=== PATIENT | female | born 1955 | race Caucasian/White ===

== ENCOUNTER 2016-10-20 20:29 | Emergency (ER) | payer OTHER ==
[~2016-10-20] VITALS: Ht 157.5 cm; Wt 64.0 kg
[~2016-10-20 20:29] MED LIST: Z.0.NO CURRENT MEDS
[2016-10-20 20:44] VITALS: BP 119/65; PULSE 83; RESP 16; TEMP 97.2; O2SAT 98
[2016-10-20 21:33] LABS: BACTERIA, URINE RARE /hpf; BLOOD, URINE NEG (NEG); COMMENT (UR) CULTURE INDICATED; CULTURE IF INDICATED CULTURE INDICATED; GLUCOSE,URINE NEG (NEG); KETONE, URINE NEG (NEG); SQUAMOUS EPITHELIAL CELL URINE 2 /hpf (0-5); URINE COLOR LIGHT-YELLOW (YELLW/STRAW)
[2016-10-20 21:34] LABS: NITRITE,URINE POS (NEG)
[2016-10-20 21:38] LABS: AUTOMATED NEUTROPHIL # 1.8 TH/MM3 (1.8-7.7); BASOPHIL # 0.1 TH/MM3 (0-0.2); BASOPHIL % 0.7 % (0.0-2.0); EOSINOPHIL # 0.3 TH/MM3 (0-0.4); EOSINOPHIL % 2.8 % (0.0-4.0); HEMATOCRIT 39.6 % (35.0-46.0); LYMPH % 70.3 % (9.0-44.0); LYMPHOCYTE # 6.9 TH/MM3 (1.0-4.8); MEAN CELL VOLUME 95.9 FL (80.0-100.0); MEAN CORPUSCULAR HEMOGLOBIN 34.2 PG (27.0-34.0); MEAN CORPUSCULAR HGB CONC 35.6 % (32.0-36.0); MONO % 7.6 % (0.0-8.0); NEUT % 18.6 % (16.0-70.0); PLATELET COUNT 268 TH/MM3 (150-450); RED BLOOD COUNT 4.13 MIL/MM3 (4.00-5.30); RED CELL DISTRIBUTION WIDTH 12.4 % (11.6-17.2); WHITE BLOOD COUNT 9.8 TH/MM3 (4.0-11.0)
[2016-10-20 21:39] LABS: HEMO FLAGS AUTO DIFF
[2016-10-20 22:06] LABS: ALKALINE PHOSPHATASE 110 U/L (45-117); ALT (GPT) 97 U/L (10-53); ANION GAP 13 MEQ/L (5-15); AST (GOT) 143 U/L (15-37); BICARBONATE 23.8 MEQ/L (21.0-32.0); BLOOD UREA NITROGEN 7 MG/DL (7-18); CHLORIDE 104 MEQ/L (98-107); GLOMERULAR FILTRATION RATE 93 ML/MIN (>89); POTASSIUM 3.9 MEQ/L (3.5-5.1); SODIUM (NA) 141 MEQ/L (136-145); TOTAL BILIRUBIN ADULT 0.3 MG/DL (0.2-1.0)
[2016-10-20 22:18] LABS: EOSINOPHILS 6 % (0-4); MYELOCYTES 1 % (0-0); NEUTROPHIL # MANUAL DIFF 1.8 TH/MM3 (1.8-7.7); POLYS (SEG NEUTROPHILS) 17 % (16-70); WBC DIFF SAMPLE 100
[2016-10-20 22:19] LABS: PLATELET ESTIMATE SMEAR NORMAL (NORMAL); PLATELET MORPHOLOGY NORMAL (NORMAL); SCAN/DIFF FINAL DIFF MANUAL
[2016-10-20 23:36] LABS: AMPHETAMINE, URINE NEG (NEG); BARBITURATES, URINE NEG (NEG); COCAINE, URINE NEG (NEG)
[2016-10-20 23:40] VITALS: BP 115/65; PULSE 92; RESP 20; TEMP 98.2; O2SAT 98
--- NOTE | 2016-10-21 01:37 | PD ---
HPI Chief Complaint: Psychiatric Symptoms Time Seen by Provider: 01:34 Travel History International Travel<30 days: No Contact w/Intl Traveler<30days: No Traveled to known affect area: No History of Present Illness HPI Patient comes in under [place] act by police for alcohol intoxication making suicidal statements. Patient states she had thought about possibly running into traffic to kill herself. Denies any previous suicide attempts. Denies any homicidal ideations or medical concerns. Denies chest pain, shortness of breath, nausea, vomiting, bowel pain, or fevers. PFSH Past Medical History Arthritis: Yes Asthma: No Autoimmune Disease: No Blood Disorders: No Anxiety: Yes Depression: Yes Heart Rhythm Problems: No Cancer: Yes (DX WITH BREAST CANCER) Cardiovascular Problems: Yes High Cholesterol: No Chemotherapy: No Chest Pain: No Congestive Heart Failure: No COPD: No Cerebrovascular Accident: No Diabetes: No Diminished Hearing: No Endocrine: No GERD: Yes Glaucoma: No Genitourinary: No Headaches: Yes Hiatal Hernia: No Hypertension: No Kidney Stones: No Musculoskeletal: Yes Neurologic: No Psychiatric: Yes Respiratory: No Integumentary: Yes (MULTIPLE WELL HEALED SCARS FROM DOG BITES) Myocardial Infarction: No Radiation Therapy: No Renal Failure: No Seizures: No Sickle Cell Disease: No Sleep Apnea: No Thyroid Disease: Yes Ulcer: No Tetanus Vaccination: < 5 Years : 2 Para: 2 Tubal Ligation: Yes () Past Surgical History Abdominal Surgery: No AICD: No Cardiac Surgery: No Section: Yes (X 2) Ear Surgery: No Endocrine Surgery: No Eye Surgery: No Genitourinary Surgery: No Gynecologic Surgery: No Oral Surgery: Yes Pacemaker: No Thoracic Surgery: No Social History Alcohol Use: Yes (BEER ON THE WEEKENDS) Tobacco Use: Yes (1 PPD) Substance Use: Yes Allergies-Medications (Allergen,Severity, Reaction): Coded Allergies: Darvocet-N 100 (Verified Allergy, Severe, 10/20/16) Seroquel (Verified Allergy, Mild, 10/20/16) Sinequan (Verified Allergy, Mild, 10/20/16) Reported Meds & Prescriptions Reported Meds & Active Scripts Active Bactrim DS (Sulfamethoxazole-Trimethoprim) 800-160 Mg Tab 1 Tab PO BID Review of Systems Except as stated in HPI: all other systems reviewed are Neg Physical Exam Narrative GENERAL: Well-developed, overly nourished, in no acute distress, and non-ill appearing. SKIN: Warm and dry. HEAD: Atraumatic. Normocephalic. EYES: Pupils equal and round. EOMI. No scleral icterus. No injection or drainage. ENT: No nasal bleeding or discharge. Mucous membranes pink and moist. NECK: Trachea midline. Supple. No nuclear rigidity. CARDIOVASCULAR: Regular rate and rhythm. No murmur appreciated. RESPIRATORY: No accessory muscle use. No respiratory distress. Clear to auscultation. Breath sounds equal bilaterally. MUSCULOSKELETAL: No obvious deformities. No clubbing. No cyanosis. No edema. Full range of motion. NEUROLOGICAL: Awake and alert. No obvious cranial nerve deficits. Motor grossly within normal limits. Normal speech. PSYCHIATRIC: Appropriate mood and affect; insight and judgment normal. Data Data Last Documented VS Vital Signs Date Time Temp Pulse Resp B/P Pulse Ox O2 Delivery O2 Flow Rate FiO2 10/22/16 10:00 99 16 172/70 97 Room Air 10/22/16 09:46 99.5 10/21/16 19:09 97 Orders Complete Blood Count With Diff (10/20/16 21:15) Comprehensive Metabolic Panel (10/20/16 21:15) Psych Screen (10/20/16 21:15) Urinalysis - C+S If Indicated (10/20/16 21:19) Urine Culture (10/20/16 21:20) Drug Screen, Random Urine (10/20/16 22:48) Alcohol (Ethanol) (10/20/16 22:48) Diet Regular Basic (10/21/16 Breakfast) Sulfamet-Trimeth Ds 800-160 Mg (Bactrim (10/21/16 01:45) Cetirizine (Zyrtec) (10/21/16 05:00) Alcohol Withdrawal Asmt-Ciwa ONCE (10/21/16 05:13) Flumazenil Inj (Romazicon Inj) (10/21/16 05:15) Lorazepam (Ativan) (10/21/16 05:15) Lorazepam Inj (Ativan Inj) (10/21/16 05:15) Lorazepam (Ativan) (10/21/16 05:15) Lorazepam Inj (Ativan Inj) (10/21/16 05:15) Lorazepam Inj (Ativan Inj) (10/21/16 05:15) Lorazepam Inj (Ativan Inj) (10/21/16 05:15) Diet Regular Basic (10/21/16 Lunch) Diet Regular Basic (10/21/16 Dinner) Ibuprofen (Motrin) (10/21/16 16:45) Diet Regular Basic (10/22/16 Breakfast) Labs Laboratory Tests Test 10/20/16 21:20 White Blood Count 9.8 TH/MM3 Red Blood Count 4.13 MIL/MM3 Hemoglobin 14.1 GM/DL Hematocrit 39.6 % Mean Corpuscular Volume 95.9 FL Mean Corpuscular Hemoglobin 34.2 PG Mean Corpuscular Hemoglobin 35.6 % Concent Red Cell Distribution Width 12.4 % Platelet Count 268 TH/MM3 Mean Platelet Volume 7.3 FL Neutrophils (%) (Auto) 18.6 % Lymphocytes (%) (Auto) 70.3 % Monocytes (%) (Auto) 7.6 % Eosinophils (%) (Auto) 2.8 % Basophils (%) (Auto) 0.7 % Neutrophils # (Auto) 1.8 TH/MM3 Lymphocytes # (Auto) 6.9 TH/MM3 Monocytes # (Auto) 0.7 TH/MM3 Eosinophils # (Auto) 0.3 TH/MM3 Basophils # (Auto) 0.1 TH/MM3 CBC Comment AUTO DIFF Differential Total Cells 100 Counted Neutrophils % (Manual) 17 % Lymphocytes % 74 % Monocytes % 2 % Eosinophils % 6 % Neutrophils # (Manual) 1.8 TH/MM3 Myelocytes 1 % Differential Comment FINAL DIFF MANUAL Atypical Lymphocytes % Platelet Estimate NORMAL Platelet Morphology Comment NORMAL Red Cell Morphology Comment NORMAL Sodium Level 141 MEQ/L Potassium Level 3.9 MEQ/L Chloride Level 104 MEQ/L Carbon Dioxide Level 23.8 MEQ/L Anion Gap 13 MEQ/L Blood Urea Nitrogen 7 MG/DL Creatinine 0.65 MG/DL Estimat Glomerular Filtration 93 ML/MIN Rate Random Glucose 126 MG/DL Calcium Level 9.2 MG/DL Total Bilirubin 0.3 MG/DL Aspartate Amino Transf 143 U/L (AST/SGOT) Alanine Aminotransferase 97 U/L (ALT/SGPT) Alkaline Phosphatase 110 U/L Total Protein 8.0 GM/DL Albumin 3.4 GM/DL Urine Opiates Screen NEG Urine Barbiturates Screen NEG Urine Amphetamines Screen NEG Urine Benzodiazepines Screen POS Urine Cocaine Screen NEG Urine Cannabinoids Screen NEG Ethyl Alcohol Level 239 MG/DL Urine Color LIGHT-YELLOW Urine Turbidity HAZY Urine pH 6.0 Urine Specific [place] 1.004 Urine Protein NEG mg/dL Urine Glucose (UA) NEG mg/dL Urine Ketones NEG mg/dL Urine Occult Blood NEG Urine Nitrite POS Urine Bilirubin NEG Urine Urobilinogen LESS THAN 2.0 MG/DL Urine Leukocyte Esterase LARGE Urine WBC 55 /hpf Urine Squamous Epithelial 2 /hpf Cells Urine Bacteria RARE /hpf Microscopic Urinalysis Comment CULTURE INDICATED MDM Medical Decision Making Medical Screen Exam Complete: Yes Emergency Medical Condition: Yes Differential Diagnosis Homicidal, suicidal, alcohol intoxication, depression, other Narrative Course Patient was seen and examined. Labs were obtained and reviewed. Patient medically cleared for further treatment and evaluation by psych. Final disposition per psych. Diagnosis Primary Impression: Suicidal ideation Additional Impressions: Alcohol intoxication Qualified Code: F10.120 - Alcohol intoxication, uncomplicated UTI (urinary tract infection) Qualified Code: N39.0 - Urinary tract infection without hematuria, site unspecified Patient Instructions: General Instructions, Urinary Tract Infection in Women ( ED) Additional Instructions: Follow-up with primary care doctor next week for reevaluation of urinary tract infection. Take all medication as prescribed. Scripts Sulfamethoxazole-Trimethoprim (Bactrim DS)800-160 Mg Tab1 Tab PO BID #14 TAB Ref 0 Prov:Marta Cain MD 10/21/16 Condition: Stable Tommy Alarcon Oct 21, 2016 01:37
[2016-10-21] MEDS ORDERED: BACT800T5 PO (01:38)
[2016-10-21] MEDS ORDERED: SULFAMETHOXAZOLE-TRIMETHOPRIM DS 800-160 MG TAB PO ONE (01:45)
[2016-10-21] MEDS ORDERED: CETIRIZINE HCL 10 MG TAB PO ONE (05:00)
[2016-10-21 05:14] VITALS: BP 164/72; PULSE 100; RESP 18
[2016-10-21] MEDS ORDERED: LORazepam 2 MG/ML VIAL IV PUSH PRN ×4 (05:15)
[2016-10-21] MEDS ORDERED: FLUMAZENIL 0.5 MG/5 ML VIAL IV PUSH PRN (05:15)
[2016-10-21] MEDS: LORazepam 1 MG TAB PO PRN ×3 (05:18→15:19)
[2016-10-21 10:42] VITALS: BP 166/86; PULSE 104; RESP 18; TEMP 99.2; O2SAT 97
[2016-10-21 15:19] VITALS: BP 171/83; PULSE 95; RESP 16; TEMP 99.3; O2SAT 96
--- NOTE | 2016-10-21 15:44 | PD ---
History of Present Illness Chief Complaint: Psychiatric Symptoms Time Seen by Provider: 15:30 Travel History International Travel<30 Days: No Contact w/Intl Traveler<30days: No Known affected area: No Legal Status Legal Status: [place] Act [place] Act Signed By: Hilary Martinez History of Present Illness: History of Present Illness HPI 61 year old female with no previous psychiatric history and history of alcohol abuse who comes in under [place] act initiated by police. As per the BA report the patient was found intoxicated and advised them she wanted to walk into traffic to kill herself. Patient presented with BAL of 239. Positive toxicology for benzos. EMR is reviewed and she has not had previous contact with [facility] psychiatry. Patient has been monitored in [facility] and has presented no behavioral concerns. Patient is seen this morning in [facility] pod. She is clinically sober. She has tremors of hands and is diaphoretic. She is on CIWA protocol. Her speech is clear and logical, goal directed. Her hygiene and grooming is poor. She tells me she has been living on the streets since April. She denies any hallucinations, delusions or paranoia. her mood is depressed. She is hopeless and helpless about her life and her inability to maintain sobriety. She states that she has had multiple losses including her who in December 2015. She lost her home in April,lost her vehicle as well. Yesterday she lost her suitcase with the last of her belongings. She is denying current suicidal ideation. In terms of her alcohol use she has been drinking every day since December and usually drinks as much as she can find and that she is unable to stop drinking. Prior to that she reports she was an occasional / social drinker only. PFSH Past Medical History Arthritis: Yes Asthma: No Autoimmune Disease: No Blood Disorders: No Anxiety: Yes Depression: Yes Heart Rhythm Problems: No Cancer: Yes (DX WITH BREAST CANCER) Cardiovascular Problems: Yes High Cholesterol: No Chemotherapy: No Chest Pain: No Congestive Heart Failure: No COPD: Yes (SMOKER) Cerebrovascular Accident: No Diabetes: No Diminished Hearing: No Endocrine: No Gastrointestinal Disorders: No GERD: Yes Glaucoma: No Genitourinary: No Headaches: Yes Hiatal Hernia: No Hypertension: No Kidney Stones: No Musculoskeletal: Yes Neurologic: No Psychiatric: Yes Reproductive: No Respiratory: No Integumentary: Yes (MULTIPLE WELL HEALED SCARS FROM DOG BITES) Myocardial Infarction: No Radiation Therapy: No Renal Failure: No Seizures: No Sickle Cell Disease: No Sleep Apnea: No Thyroid Disease: Yes Ulcer: No Tetanus Vaccination: < 5 Years : 2 Para: 2 Tubal Ligation: Yes () Past Surgical History Abdominal Surgery: No AICD: No Cardiac Surgery: No Section: Yes (X 2) Ear Surgery: No Endocrine Surgery: No Eye Surgery: No Genitourinary Surgery: No Gynecologic Surgery: No Neurologic Surgery: No Oral Surgery: Yes Pacemaker: No Thoracic Surgery: No Other Surgery: No Psychiatric History Psychiatric History Hx Psychiatric Treatment: PT DENIES History of Inpatient Treatment: No Guns or firearms in home: No Social History female.Homeless. receives social security Hx Alcohol Use: Yes (BEER ON THE WEEKENDS) Hx Tobacco Use: Yes (1 PPD) Hx Substance Use: Yes (ALCOHOL ABUSE) Substance Use Type: Alcohol Hx of Substance Use Treatment: No Family Psychiatric History Negative Allergies-Medications (Allergen,Severity, Reaction): Coded Allergies: Darvocet-N 100 (Verified Allergy, Severe, 10/20/16) Seroquel (Verified Allergy, Mild, 10/20/16) Sinequan (Verified Allergy, Mild, 10/20/16) Reported Meds & Prescriptions Reported Meds & Active Scripts Active Bactrim DS (Sulfamethoxazole-Trimethoprim) 800-160 Mg Tab 1 Tab PO BID Review of Systems Endocrine: DENIES: Abnorml menstrual pattern, Heat/cold intolerance, Polydipsia , Polyuria, Polyphagia Eyes: DENIES: Blurred vision, Diplopia, Eye inflammation, Eye pain, Vision loss , Photosensitivity, Double Vision Ears, nose, mouth, throat: DENIES: Tinnitus, Hearing loss, Vertigo, Nasal discharge, Oral lesions, Throat pain, Hoarseness, Ear Pain, Running Nose, Epistaxis, Sinus Pain, Toothache, Odynophagia Respiratory: DENIES: Apneas, Cough, Snoring, Wheezing, Hemoptysis, Sputum production, Shortness of breath Cardiovascular: DENIES: Chest pain, Palpitations, Syncope, Dyspnea on Exertion , PND, Lower Extremity Edema, Orthopnea, Claudication Gastrointestinal: COMPLAINS OF: Nausea Genitourinary: COMPLAINS OF: Urinary frequency Musculoskeletal: COMPLAINS OF: Back pain Integumentary: DENIES: Abnormal pigmentation, Pruritus, Rash, Nail changes, Breast masses, Breast skin changes, Nipple discharge Hematologic/lymphatic: DENIES: Bruising, Lymphadenopathy Immunologic/allergic: DENIES: Eczema, Urticaria Neurologic: DENIES: Abnormal gait, Headache, Localized weakness, Paresthesias, Seizures, Speech Problems, Tremor, Poor Balance Psychiatric: COMPLAINS OF: Depression Exam Alert: Yes [place]: Person (ox4) Mood: Depressed Affect: Other (teraful) Eye Contact: Normal Memory Intact: Immediate (not impaired), Comment (no gross abnormality) Delusions: No Suicidal: Ideation (deneis at present) Homicidal: Ideation (denies at present) Insight/Judgement Fair. Not impaired MDM Medical Decision Making Medical Record Reviewed: Yes Assessment/Plan 61 year old female with alcohol dependence as well as alcohol induced mood disorder who is under a BA for reporting she wanted to jump into upcoming traffic. At this time the patient requires continued observation . She has been placed on SMA list for continued treatment as well as detox services. She wants to be able to move into a sober living home. Orders Complete Blood Count With Diff (10/20/16 21:15) Comprehensive Metabolic Panel (10/20/16 21:15) Psych Screen (10/20/16 21:15) Urinalysis - C+S If Indicated (10/20/16 21:19) Urine Culture (10/20/16 21:20) Drug Screen, Random Urine (10/20/16 22:48) Alcohol (Ethanol) (10/20/16 22:48) Diet Regular Basic (10/21/16 Breakfast) Sulfamet-Trimeth Ds 800-160 Mg (Bactrim (10/21/16 01:45) Cetirizine (Zyrtec) (10/21/16 05:00) Alcohol Withdrawal Asmt-Ciwa ONCE (10/21/16 05:13) Flumazenil Inj (Romazicon Inj) (10/21/16 05:15) Lorazepam (Ativan) (10/21/16 05:15) Lorazepam Inj (Ativan Inj) (10/21/16 05:15) Lorazepam (Ativan) (10/21/16 05:15) Lorazepam Inj (Ativan Inj) (10/21/16 05:15) Lorazepam Inj (Ativan Inj) (10/21/16 05:15) Lorazepam Inj (Ativan Inj) (10/21/16 05:15) Diet Regular Basic (10/21/16 Lunch) Diet Regular Basic (10/21/16 Dinner) Results Vital Signs Date Time Temp Pulse Resp B/P Pulse Ox O2 Delivery O2 Flow Rate FiO2 10/21/16 15:19 99.3 95 16 171/83 96 10/21/16 10:42 99.2 104 18 166/86 97 Room Air 10/21/16 05:14 100 18 164/72 10/21/16 04:23 10/20/16 23:40 98.2 92 20 115/65 98 Room Air 10/20/16 20:44 97.2 83 16 119/65 98 Laboratory Tests Test 10/20/16 21:20 White Blood Count 9.8 Red Blood Count 4.13 Hemoglobin 14.1 Hematocrit 39.6 Mean Corpuscular Volume 95.9 Mean Corpuscular Hemoglobin 34.2 Mean Corpuscular Hemoglobin 35.6 Concent Red Cell Distribution Width 12.4 Platelet Count 268 Mean Platelet Volume 7.3 Neutrophils (%) (Auto) 18.6 Lymphocytes (%) (Auto) 70.3 Monocytes (%) (Auto) 7.6 Eosinophils (%) (Auto) 2.8 Basophils (%) (Auto) 0.7 Neutrophils # (Auto) 1.8 Lymphocytes # (Auto) 6.9 Monocytes # (Auto) 0.7 Eosinophils # (Auto) 0.3 Basophils # (Auto) 0.1 CBC Comment AUTO DIFF Differential Total Cells 100 Counted Neutrophils % (Manual) 17 Lymphocytes % 74 Monocytes % 2 Eosinophils % 6 Neutrophils # (Manual) 1.8 Myelocytes 1 Differential Comment FINAL DIFF MANUAL Atypical Lymphocytes Platelet Estimate NORMAL Platelet Morphology Comment NORMAL Red Cell Morphology Comment NORMAL Sodium Level 141 Potassium Level 3.9 Chloride Level 104 Carbon Dioxide Level 23.8 Anion Gap 13 Blood Urea Nitrogen 7 Creatinine 0.65 Estimat Glomerular Filtration 93 Rate Random Glucose 126 Calcium Level 9.2 Total Bilirubin 0.3 Aspartate Amino Transf 143 (AST/SGOT) Alanine Aminotransferase 97 (ALT/SGPT) Alkaline Phosphatase 110 Total Protein 8.0 Albumin 3.4 Urine Opiates Screen NEG Urine Barbiturates Screen NEG Urine Amphetamines Screen NEG Urine Benzodiazepines Screen POS Urine Cocaine Screen NEG Urine Cannabinoids Screen NEG Ethyl Alcohol Level 239 Urine Color LIGHT-YELLOW Urine Turbidity HAZY Urine pH 6.0 Urine Specific [place] 1.004 Urine Protein NEG Urine Glucose (UA) NEG Urine Ketones NEG Urine Occult Blood NEG Urine Nitrite POS Urine Bilirubin NEG Urine Urobilinogen LESS THAN 2.0 Urine Leukocyte Esterase LARGE Urine WBC 55 Urine Squamous Epithelial 2 Cells Urine Bacteria RARE Microscopic Urinalysis Comment CULTURE INDICATED Date/Time Procedure Status Source Growth 10/20/16 21:20 Urine Culture - Preliminary Resulted Urine Clean Catch Gram Negative Rito Diagnosis Primary Impression: Suicidal ideation Additional Impressions: UTI (urinary tract infection) Alcohol dependence Alcohol-induced mood disorder Ruled Out: Alcohol intoxication Patient Instructions: General Instructions, Urinary Tract Infection in Women ( ED) Additional Instructions: Follow-up with primary care doctor next week for reevaluation of urinary tract infection. Take all medication as prescribed. Prescriptions Sulfamethoxazole-Trimethoprim (Bactrim DS)800-160 Mg Tab1 Tab PO BID #14 TAB Ref 0 Prov:Marta Cain MD 10/21/16 Condition: Stable Problem Qualifiers Additional Impressions: UTI (urinary tract infection) Qualified Code: N39.0 - Urinary tract infection without hematuria, site unspecified Alcohol dependence Qualified Code: F10.220 - Alcohol dependence with uncomplicated intoxication Desiree Guillen Oct 21, 2016 15:44
[2016-10-21] MEDS ORDERED: IBUPROFEN 600 MG TAB PO ONE (16:45)
[2016-10-21 18:00] VITALS: BP 179/83; PULSE 87; RESP 20; TEMP 98.7; O2SAT 98
[2016-10-21 19:09] VITALS: BP_SYST 144; PULSE 85; RESP 18
[2016-10-21] MEDS: LORazepam 2 MG TAB PO PRN (22:29)
[2016-10-21 22:35] VITALS: BP 171/94; PULSE 85; RESP 18; O2SAT 97
[2016-10-22 03:43] VITALS: BP 163/79; PULSE 71; RESP 17; O2SAT 98
[2016-10-22 06:51] VITALS: BP 127/70; PULSE 75; RESP 17; O2SAT 100
[2016-10-22 06:52] VITALS: BP 101/57; PULSE 66; RESP 19; O2SAT 98
[2016-10-22] MEDS: LORazepam 2 MG TAB PO PRN (09:39)
[2016-10-22 09:46] VITALS: BP 183/90; PULSE 106; RESP 20; TEMP 99.5; O2SAT 98
[2016-10-22 10:00] VITALS: BP 172/70; PULSE 99; RESP 16; O2SAT 97
--- NOTE | 2016-10-22 12:22 | MB ---
cc: SEPIDEH MARTÍNEZ MD DATE OF CONSULTATION: 10/22/2016 REASON FOR CONSULTATION: HISTORY OF PRESENT ILLNESS: The patient is a 61-year-old female who came here under the [place] Act. She has a history of alcohol abuse. She was intoxicated with a blood alcohol level of 239, now she feels better. She wants some help as an outpatient. She has been upset about her 's and has been drinking excessively since. She denied any auditory or visual hallucinations, denied any suicidal or homicidal ideation, intension or plan. Denied any paranoia at this time. She wants to go home and gets some help as an outpatient. BACKGROUND HISTORY The patient was born in [place]. She has three sisters. She was close to both of her parents. She claimed that her childhood was okay. She denied any physical, verbal or sexual abuse growing up. She quit school in tenth grade. She has been for 16 years. Her . She has two boys. She has been to the rehab a couple of times and once she was in the psychiatric hospital. She started drinking alcohol when she was about 19 and got worse since the of her . Her son also , committed suicide, killed himself, and that bothers her, but she denies any suicidal ideation, intension or plan. MENTAL STATUS EXAM This is a 61-year-old white female who looks about the same as her stated age. She was alert, oriented x3, cooperative, casually dressed. Her speech was slow without any evidence of loose associations or flight of ideas or pressured speech. Her mood was described as wanting to get some help for her alcohol abuse as an outpatient. Her affect was restricted. She denied any suicidal and/or homicidal ideation, intentions or plan. Denied any auditory or visual hallucinations. There was no evidence of any formed paranoid delusion at this time. She seems to be of average intelligence with poor recent memory. Her insight is fair. Her judgment seems to be okay on hypothetical situation. IMPRESSION Alcohol induced mood disorder. RECOMMENDATIONS At the present time the patient denies any suicidal and/or homicidal ideation, intentions or plan. Denied any auditory or visual hallucinations. Her thoughts were organized. She is willing to follow up as an outpatient and abstain from any alcohol use and/or abuse. No behavior or management problem exhibited. In my opinion she does not meet the [place] Act criteria. I will lift the [place] Act and discharge her to be followed up as an outpatient. Sepideh ALONZO /9:56 AM /11:15 AM
== END 2016-10-22 12:13 | disposition home or self-care (01) ==
LOC: NEPA 20:29 → NEPJ 10-22 12:13
DX: R45.851 Suicidal ideations (principal); F10.129 Alcohol abuse with intoxication, unspecified; F10.94 Alcohol use, unspecified with alcohol-induced mood disorder; N39.0 Urinary tract infection, site not specified; B96.89 Other specified bacterial agents as the cause of diseases classified elsewhere; J44.9 Chronic obstructive pulmonary disease, unspecified; Z87.891 Personal history of nicotine dependence; Z59.0 Homelessness; Y90.7 Blood alcohol level of 200-239 mg/100 ml
CPT/HCPCS: 80053; 80307; 81001; 85007; 85027; 87077; 87086; 87186; 99285